=== PATIENT | male | born 2000 | race African-American/Black ===

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

== ENCOUNTER → 2020-02-19 | Outpatient (CLI) | payer OTHER | LOC: M LABSMTC 09:37 | PROVIDERS: ATTEND Anesthesiology | DX: Z01.812 Encounter for preprocedural laboratory examination (principal); Z11.59 Encounter for screening for other viral diseases | CPT/HCPCS: C8903; U0002 ==

== ENCOUNTER 2020-02-21 10:58 | Day surgery (SDC) | payer OTHER ==
[~2020-02-21] VITALS: Ht 170.2 cm; Wt 71.7 kg
[~2020-02-21 10:58] MED LIST: LR 1,000 ML IV ONE; ceFAZolin SOD 2 GM in IV 1 EA IV ONE
[2020-02-21] MEDS ORDERED: propofoL 200 MG/20 ML VIAL As Ordered ONE (11:50)
[2020-02-21] MEDS ORDERED: MIDAZOLAM INJ 2MG/2ML VIAL (J2250 PER 1MG) As Ordered ONE (11:52)
[2020-02-21] MEDS ORDERED: LIDOCAINE 2% 100MG/5ML SDV (FOR ANES.) As Ordered ONE (11:52)
[2020-02-21] MEDS ORDERED: fentaNYL 100 MCG/2 ML INJECTION (J3010) As Ordered ONE ×2 (11:53→14:58)
[2020-02-21] MEDS ORDERED: ROPIvacaine 0.5% 30ML INJECTION (J2795 PER 1MG) As Ordered ONE (13:22)
[2020-02-21] MEDS ORDERED: dexameTHASONE 4 MG/ML 1ML VIAL (J1100 PER 1MG) As Ordered ONE (13:25)
[2020-02-21] MEDS ORDERED: ACETAMINOPHEN 1000MG 100ML IV BTL (OFIRMEV) (J0131 PER 10MG) As Ordered ONE (13:26)
[2020-02-21] MEDS ORDERED: ONDANSETRON 4MG/2ML VIAL As Ordered ONE (13:36)
[2020-02-21] MEDS ORDERED: KETOROLAC 60 MG/2 ML VIAL As Ordered ONE (13:36)
[2020-02-21] MEDS ORDERED: METOCLOPRAMIDE INJ 10MG/2ML VIAL (J2765 PER 1) As Ordered ONE (13:36)
[2020-02-21] MEDS ORDERED: KETOROLAC 30 MG/ML 1ML VIAL IV PRN (15:00)
[2020-02-21] MEDS ORDERED: ACETAMINOPHEN TAB 650MG DOSE (2X325MG) PO PRN (15:45)
[2020-02-21] MEDS ORDERED: ONDANSETRON 4MG/2ML VIAL IV PRN ×2 (15:45)
[2020-02-21] MEDS ORDERED: PERCOCET 5MG/325MG TAB PO PRN (15:45)
[2020-02-21] MEDS ORDERED: MORPHINE 2 MG/ML 1ML VIAL (J2270) IV PRN (15:45)
[2020-02-21] MEDS ORDERED: LR 1,000 ML IV SCH ×2 (15:45)
[2020-02-21] MEDS ORDERED: METOCLOPRAMIDE INJ 10MG/2ML VIAL (J2765 PER 1) IV PRN (15:45)
[2020-02-21] MEDS: fentaNYL 100 MCG/2 ML INJECTION (J3010) IV PRN ×2 (15:53→16:04)
[2020-02-21] MEDS: PERCOCET 5MG/325MG TAB PO PRN ×2 (16:05→16:35)
[2020-02-21 17:56] VITALS: BP 117/71
--- NOTE | 2020-02-24 10:22 | RO ---
DATE OF PROCEDURE: 02/21/2020 PREOPERATIVE DIAGNOSES: Left knee anterior cruciate ligament (ACL) tear and posterior horn lateral meniscus tear. POSTOPERATIVE DIAGNOSES: Left knee anterior cruciate ligament (ACL) tear and posterior horn lateral meniscus tear. PLANNED PROCEDURE: Left knee arthroscopic-assisted hamstrings autograft anterior cruciate ligament reconstruction, possible partial lateral meniscectomy versus repair. PROCEDURE PERFORMED: Left knee arthroscopic-assisted hamstrings autograft anterior cruciate ligament reconstruction, partial posterior horn lateral meniscectomy. SURGEON: Farhat Bergman MD DISC RECORDIST: Irma Olson TYPE OF ANESTHETIC: General anesthetic. CADDIE SUPERVISOR: Dr. 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 He presented with buckling symptoms of his knee. Clinical exam and MRI were consistent with ACL tear as well as a posterior horn lateral meniscus tear. We discussed the pros, cons, risks, and benefits of nonsurgical management versus going ahead with operative interventions. I reiterated the risks in preoperative holding, marked the left lower extremity, and proceeded to surgery. OPERATIVE REPORT: Patient was brought to the operating theater. They were placed supine on the operating room table. 2 grams of intravenous (IV) Ancef was administered. General anesthesia was induced. Stress positioner was used on the patient's left side. 30-inch tourniquet was applied to the left thigh, appropriately padded. All bony prominences were appropriately padded. Sequential compression devices (SCDs) on the down leg. Limb was prepped and draped in the usual sterile fashion, allowing over 3 minutes prep solution drying time. Preoperative time-out was performed to confirm the site, the patient, and the surgery. I began by elevating the leg, inflating the tourniquet to 250 mmHg. Made a small 2-inch incision centered over the proximal and medial border of the tibia. Carried dissection down through skin and subcutaneous tissue, achieving meticulous hemostasis. I identified the sartorial fascia. I made a small incision in line with the tendons in the superior aspect of that. I excised any bands of the two hamstrings tendons and used open-ended tendon harvester to release the tendons proximally. I sharply excised them off the proximal anterior medial border of the tibia. I put a wet sponge in the wound. I began to prepare the tendons. I the two tendons. I put them end to end 180 degrees, flipping them over and cutting them both at 24 cm long. I whipstitched the ends together for a length of 2.5 cm with #2 FiberWire. Then attached one end to the TightRope RT button, passed the other end through the ABS button loop system, and then tripled the graft over and tied it again over the ABS button loop. I then used #2 FiberWire at 1 and 2 cm from the respective ends in a locking loop configuration with buried knots. Placed the graft sequentially on tension and then placed the graft on tension at the end as well. The graft was 7.5 cm in length, and the tunnels were both 9.5 mm. Wet sponge was then placed on the graft. I then turned my attention back to the knee. I made standard high anterolateral and anteromedial portals. I performed a full diagnostic arthroscopy. Patellofemoral cartilage as well as cartilage in the medial and lateral femoral compartments were normal. Gutters were entered. No obvious loose bloody. Medial meniscus with stable and solid to probing. ACL was obviously deficient. There was an empty lateral wall sign. I debrided the ACL remnant. There was a small tear near the posterior horn lateral meniscus that had flipped into the notch. The root appeared intact. There did appear to be a ligament of Rosas anterior meniscofemoral ligament that was intact. I used a combination of biters and shaving instruments to remove the meniscus tear area to stable margins. Meniscus was stable and solid to probing afterwards. There was very small undersurface horizontal fraying, but yet again this was stable. I then prepared the back wall as well as the tibial footprint, removing any remaining ACL fibers. I used inside-out retrograde drilling with the FlipCutter system. I drilled a 3 cm long tunnel with 1 cm remaining on the femur as well as a 3.5 cm long tunnel with 1 cm extra remaining on the tibia. I cleaned away any remaining tissue around the tunnel aperture. I took arthroscopy pictures throughout and saved them onto the system. I ensured that the femoral tunnel was posterior and low on the femoral back wall and without blowing out the wall. I made sure the tibial tunnel was in the space of the old footprint as well as in line with anterior horn lateral meniscus. Then passed the graft, flipped the button, and delivered the graft into femoral tunnel for a length of approximately 3 cm. I then passed the tibial- sided sutures after attaching a luggage tag type stitch to the ABS button loop system. I cycled the knee. Graft was tensioned and affixed with the button, and the backup stitches were also tied over the button as well. No impingement in full extension. Graft was stable and solid to ligamentous testing afterwards. Sutures were cut short and removed. Tourniquet was taken down at 90 minutes. Wounds were thoroughly irrigated with normal saline, followed by closure of the subcutaneous tissue with #2-0 Vicryl, skin with #3-0 Monocryl. 20 mL of 0.25% ropivacaine was used at the end of the case. Wound was cleaned with wet and dry dressing, followed by application of Steri-Strips, Adaptic, 4 x 8 gauze, ABD dressing, and overwrapped with sterile 6-inch Jone bandage. Patient was woken up from general anesthetic, transferred off the operating table, and taken to postanesthetic care unit in stable condition. All sponge, needle, instrument counts were correct. Estimated blood loss of 50 mL. PLAN: The patient will be discharged home according to day surgery criteria. Followup in the office in 2 weeks' time. They will be in crutches likely for 1- 2 weeks but can be weightbearing tolerated. The wardrobe assistant, Irma Olson, was instrumental in achieving visualization, passing the graft, and completing the case, as well as with positioning. DARRIAN
== END 2020-02-21 19:00 | disposition home or self-care (01) ==
LOC: M SDC 10:58
PROVIDERS: ATTEND Orthopaedic Surgery Sports Medicine
DX: S83.512A Sprain of anterior cruciate ligament of left knee, initial encounter (principal); S83.282A Other tear of lateral meniscus, current injury, left knee, initial encounter; X58.XXXA Exposure to other specified factors, initial encounter; Y92.89 Other specified places as the place of occurrence of the external cause; Y93.45 Activity, cheerleading; Y99.9 Unspecified external cause status
CPT/HCPCS: 29881; 29888; C1713; J0131; J0690; J1100; J1885; J2250; J2405; J2765; J2795; J3010

== ENCOUNTER 2022-07-25 09:21 | Inpatient (IN) | payer OTHER ==
[2022-07-25 09:58] LABS: HEMATOCRIT 38.7 % (42.0-52.0); HEMOGLOBIN 12.9 g/dl (13.5-17.5); MEAN CORPUSCULAR HEMOGLOBIN 26.2 pg (27.0-33.0); MEAN CORPUSCULAR HGB CONC 33.3 g/dl (32.0-36.5); MEAN CORPUSCULAR VOLUME 78.7 fl (80.0-96.0); PLATELET COUNT, AUTOMATED 303 10^3/uL (150-450); RED BLOOD COUNT 4.92 10^6/uL (4.30-6.10); WHITE BLOOD COUNT 9.4 10^3/uL (4.0-10.0)
[2022-07-25 10:30] LABS: AMPHETAMINES LEVEL URINE NEGATIVE (NEGATIVE); BARBITURATES URINE NEGATIVE (NEGATIVE); BENZODIAZEPINES URINE NEGATIVE (NEGATIVE); CANNABINOIDS URINE POSITIVE (NEGATIVE); COCAINE METABOLITE URINE POSITIVE (NEGATIVE); METHADONE URINE NEGATIVE (NEGATIVE); OPIATES URINE NEGATIVE (NEGATIVE); PHENCYCLIDINE URINE NEGATIVE (NEGATIVE)
[2022-07-25 10:33] LABS: RSV AMPLIFICATION NEGATIVE (NEGATIVE)
[2022-07-25 10:41] LABS: ACETAMINOPHEN LEVEL < 2.0 UG/ML (10.0-30.0); ALBUMIN 4.8 GM/DL (3.2-5.2); ALT/SGPT 17 U/L (12-78); BILIRUBIN,DIRECT 0.2 MG/DL (0.0-0.2); BILIRUBIN,TOTAL 0.7 MG/DL (0.2-1.0); BLOOD UREA NITROGEN 12 MG/DL (7-18); CALCIUM LEVEL 9.2 MG/DL (8.5-10.1); CARBON DIOXIDE LEVEL 24 MEQ/L (21-32); CHLORIDE LEVEL 109 MEQ/L (98-107); CREATININE FOR GFR 1.51 MG/DL (0.70-1.30); ETHYL ALCOHOL (ETHANOL) 0.084 % (0.000-0.010); GLOMERULAR FILTRATION RATE > 60.0 (>60); GLUCOSE, FASTING 102 MG/DL (70-100); POTASSIUM SERUM 3.8 MEQ/L (3.5-5.1); SALICYLATE LEVEL < 1.7 MG/DL (5.0-30.0); SODIUM LEVEL 140 MEQ/L (136-145); TOTAL PROTEIN 8.5 GM/DL (6.4-8.2)
[2022-07-25] MEDS ORDERED: HOME MED LIST COMPLETE! XX SCH (17:35)
[2022-07-25] MEDS ORDERED: MAALOX 30 ML SUSP *UDC PO PRN (18:15)
[2022-07-25] MEDS ORDERED: MOM 30ML SUSPENSION UDC PO PRN (18:15)
[2022-07-25] MEDS ORDERED: ACETAMINOPHEN TAB 650MG DOSE (2X325MG) PO PRN (18:15)
[2022-07-25 21:09] VITALS: BP 111/71
[2022-07-25] MEDS: traZODone 50 MG TAB PO PRN (23:46)
[2022-07-26 06:20] VITALS: BP 129/74
[2022-07-26 18:37] VITALS: BP 134/81
[2022-07-26] MEDS: traZODone 50 MG TAB PO PRN (22:57)
[2022-07-27 05:40] VITALS: BP 138/77
== END 2022-07-27 11:03 | disposition home or self-care (01) | DRG 755 ==
LOC: M ED 09:21 → M ED INP 18:14 → M PSY 21:07
PROVIDERS: ADMIT Psychiatry & Neurology Psychiatry; ATTEND Psychiatry & Neurology Psychiatry
DX: F43.20 Adjustment disorder, unspecified (principal); R45.851 Suicidal ideations; Z63.5 Disruption of family by separation and divorce; F10.94 Alcohol use, unspecified with alcohol-induced mood disorder; Z20.822 Contact with and (suspected) exposure to COVID-19

== ENCOUNTER 2023-12-14 14:50 | Emergency (ER) | payer MEDICAID, OTHER ==
[~2023-12-14] VITALS: Ht 175.3 cm; Wt 72.7 kg
[2023-12-14] MEDS: ASPIRIN 81MG CHEW TABLET PO ONE (17:52)
[2023-12-14 18:00] LABS: BASO # 0.1 10^3/uL (0.0-0.2); EOS # 0.1 10^3/uL (0.0-0.5); EOS % 1.3 % (0.0-3.0); HEMATOCRIT 39.9 % (42.0-52.0); HEMOGLOBIN 12.9 g/dl (13.5-17.5); LYMPH # 2.1 10^3/uL (1.5-5.0); LYMPH % 30.5 % (24.0-44.0); MEAN CORPUSCULAR HEMOGLOBIN 26.1 pg (27.0-33.0); MEAN CORPUSCULAR HGB CONC 32.3 g/dl (32.0-36.5); MEAN CORPUSCULAR VOLUME 80.6 fl (80.0-96.0); MONO # 0.5 10^3/uL (0.0-0.8); MONO % 7.6 % (2.0-8.0); NEUTROPHILS # 4.1 10^3/uL (1.5-8.5); NEUTROPHILS % 59.5 % (36.0-66.0); PLATELET COUNT, AUTOMATED 299 10^3/uL (150-450); RED BLOOD COUNT 4.95 10^6/uL (4.30-6.10)
[2023-12-14 18:23] LABS: BLOOD UREA NITROGEN 8 MG/DL (9-23); CALCIUM LEVEL 8.6 MG/DL (8.5-10.1); CARBON DIOXIDE LEVEL 26 MMOL/L (20-31); CHLORIDE LEVEL 107 MMOL/L (98-107); CREATININE FOR GFR 0.98 MG/DL (0.70-1.30); GLOMERULAR FILTRATION RATE > 60.0 (>60); GLUCOSE, FASTING 94 MG/DL (60-100); POTASSIUM SERUM 4.2 MMOL/L (3.5-5.1); SODIUM LEVEL 139 MMOL/L (136-145)
[2023-12-14 18:30] VITALS: BP 118/79
[2023-12-14 18:45] VITALS: TEMP 98.9; O2SAT 99
== END 2023-12-14 18:57 | disposition home or self-care (01) ==
LOC: M ED 14:50
DX: R07.89 Other chest pain (principal); F14.10 Cocaine abuse, uncomplicated; F17.200 Nicotine dependence, unspecified, uncomplicated

== ENCOUNTER 2024-03-12 02:41 | Emergency (ER) | payer OTHER ==
[~2024-03-12] VITALS: Ht 172.7 cm; Wt 77.1 kg
[2024-03-12] MEDS: NS 1,000 ML IV ONE (03:05)
[2024-03-12 03:07] LABS: BASO # 0.1 10^3/uL (0.0-0.2); BASO % 0.5 % (0.0-1.0); EOS # 0.1 10^3/uL (0.0-0.5); HEMATOCRIT 40.5 % (42.0-52.0); HEMOGLOBIN 13.4 g/dl (13.5-17.5); LYMPH # 3.6 10^3/uL (1.5-5.0); LYMPH % 30.7 % (24.0-44.0); MEAN CORPUSCULAR HEMOGLOBIN 26.4 pg (27.0-33.0); MEAN CORPUSCULAR HGB CONC 33.1 g/dl (32.0-36.5); MEAN CORPUSCULAR VOLUME 79.9 fl (80.0-96.0); MONO # 0.9 10^3/uL (0.0-0.8); MONO % 7.5 % (2.0-8.0); NEUTROPHILS % 59.9 % (36.0-66.0); PLATELET COUNT, AUTOMATED 343 10^3/uL (150-450); RED BLOOD COUNT 5.07 10^6/uL (4.30-6.10); WHITE BLOOD COUNT 11.7 10^3/uL (4.0-10.0)
[2024-03-12 03:31] LABS: BLOOD UREA NITROGEN 22 MG/DL (9-23); CALCIUM LEVEL 9.5 MG/DL (8.5-10.1); CARBON DIOXIDE LEVEL 28 MMOL/L (20-31); CHLORIDE LEVEL 105 MMOL/L (98-107); CREATININE FOR GFR 1.14 MG/DL (0.70-1.30); GLOMERULAR FILTRATION RATE > 60.0 (>60); GLUCOSE, FASTING 148 MG/DL (60-100); POTASSIUM SERUM 3.7 MMOL/L (3.5-5.1); SODIUM LEVEL 142 MMOL/L (136-145)
[2024-03-12 03:49] LABS: CK-MB VALUE MASS 2.3 NG/ML (<3.6)
[2024-03-12 03:52] LABS: CPK CREATINE PHOSPHOKINASE 290 U/L (46-171); MB/CK RELATIVE INDEX 0.79 (< OR =4)
[2024-03-12 04:53] LABS: CK-MB VALUE MASS 2.1 NG/ML (<3.6)
[2024-03-12 04:54] LABS: CPK CREATINE PHOSPHOKINASE 241 U/L (46-171); MB/CK RELATIVE INDEX 0.87 (< OR =4)
[2024-03-12 05:00] VITALS: BP 113/58; TEMP 97.9; O2SAT 96
== END 2024-03-12 05:20 | disposition home or self-care (01) ==
LOC: M ED 02:41 → EDBD 02:41 → M ED 05:20
DX: R07.9 Chest pain, unspecified (principal); R00.2 Palpitations; I45.10 Unspecified right bundle-branch block; I25.2 Old myocardial infarction; F17.200 Nicotine dependence, unspecified, uncomplicated; F10.10 Alcohol abuse, uncomplicated; F12.10 Cannabis abuse, uncomplicated; F19.10 Other psychoactive substance abuse, uncomplicated

== ENCOUNTER 2025-01-09 15:06 | Inpatient (IN) | payer OTHER ==
[~2025-01-09] VITALS: Ht 205.7 cm; Wt 67.4 kg
[2025-01-09 15:50] LABS: HEMOGLOBIN 12.9 g/dl (13.5-17.5); MEAN CORPUSCULAR HEMOGLOBIN 26.3 pg (27.0-33.0); MEAN CORPUSCULAR HGB CONC 33.1 g/dl (32.0-36.5); MEAN CORPUSCULAR VOLUME 79.6 fl (80.0-96.0); PLATELET COUNT, AUTOMATED 303 10^3/uL (150-450); WHITE BLOOD COUNT 6.6 10^3/uL (4.0-10.0)
[2025-01-09 16:17] LABS: AMPHETAMINES LEVEL URINE NEGATIVE (NEGATIVE); BARBITURATES URINE NEGATIVE (NEGATIVE); BENZODIAZEPINES URINE NEGATIVE (NEGATIVE); COCAINE METABOLITE URINE NEGATIVE (NEGATIVE); METHADONE URINE NEGATIVE (NEGATIVE); OPIATES URINE NEGATIVE (NEGATIVE); PHENCYCLIDINE URINE NEGATIVE (NEGATIVE)
[2025-01-09 16:18] LABS: ETHYL ALCOHOL (ETHANOL) < 0.003 % (0.000-0.010)
[2025-01-09 16:19] LABS: CANNABINOIDS URINE POSITIVE (NEGATIVE)
[2025-01-09 16:20] LABS: SALICYLATE LEVEL < 3.0 MG/DL (<30)
[2025-01-09 16:21] LABS: ALBUMIN 4.8 G/DL (3.2-5.2); ALKALINE PHOSPHATASE 65 U/L (40-129); ALT/SGPT 15 U/L (7.0-40); AST/SGOT 20 U/L (<34); BILIRUBIN,DIRECT 0.2 MG/DL (<0.4); BILIRUBIN,TOTAL 0.6 MG/DL (0.3-1.2); BLOOD UREA NITROGEN 14 MG/DL (9-23); CALCIUM LEVEL 9.2 MG/DL (8.5-10.1); CARBON DIOXIDE LEVEL 26 MMOL/L (20-31); CHLORIDE LEVEL 108 MMOL/L (98-107); CREATININE FOR GFR 0.94 MG/DL (0.70-1.30); GLOMERULAR FILTRATION RATE > 60.0 (>60); GLUCOSE, FASTING 96 MG/DL (60-100); POTASSIUM SERUM 4.2 MMOL/L (3.5-5.1); SODIUM LEVEL 141 MMOL/L (136-145); TOTAL PROTEIN 7.4 G/DL (5.7-8.2)
[2025-01-09 16:23] LABS: THYROID STIMULATING HORMONE 0.536 uIU/ML (0.55-4.78)
[2025-01-09] MEDS ORDERED: HOME MED LIST COMPLETE! XX SCH (18:30)
[2025-01-09] MEDS ORDERED: diphenhydrAMINE 25MG CAP PO PRN (18:45)
[2025-01-09] MEDS ORDERED: MOM 30ML SUSPENSION UDC PO PRN (18:45)
[2025-01-09] MEDS ORDERED: MAALOX 30 ML SUSP *UDC PO PRN (18:45)
[2025-01-09] MEDS ORDERED: ACETAMINOPHEN 325 MG TAB PO PRN (18:45)
[2025-01-09] MEDS ORDERED: traZODone 50 MG TAB PO PRN (18:45)
[2025-01-09] MEDS ORDERED: IBUPROFEN 400MG TAB PO PRN (18:45)
[2025-01-10] MEDS ORDERED: traZODone 50 MG TAB PO PRN (10:35)
[2025-01-10] MEDS ORDERED: IBUPROFEN 400MG TAB PO PRN (10:35)
[2025-01-10] MEDS ORDERED: MOM 30ML SUSPENSION UDC PO PRN (10:35)
[2025-01-10] MEDS ORDERED: ACETAMINOPHEN 325 MG TAB PO PRN (10:35)
[2025-01-10] MEDS ORDERED: diphenhydrAMINE 25MG CAP PO PRN (10:35)
[2025-01-10] MEDS ORDERED: MAALOX 30 ML SUSP *UDC PO PRN (10:35)
[2025-01-10 12:58] VITALS: BP 126/74; TEMP 97.6; O2SAT 99
[2025-01-10] MEDS: NICOTINE POLACRILEX 2 MG GUM PO PRN (16:34)
[2025-01-11 06:48] VITALS: BP 157/87; TEMP 97.7; O2SAT 99
[2025-01-12 06:23] VITALS: BP 129/73; TEMP 97; O2SAT 100
== END 2025-01-12 13:33 | disposition home or self-care (01) | DRG 753 ==
LOC: M ED 17:01 → UNDOADMIN 18:44 → M ED INP 18:44 → M PSY 01-10 13:08
PROVIDERS: ADMIT Psychiatry & Neurology Neurology; ATTEND Psychiatry & Neurology Psychiatry
DX: F39 Unspecified mood [affective] disorder (principal); F17.290 Nicotine dependence, other tobacco product, uncomplicated; Z65.0 Conviction in civil and criminal proceedings without imprisonment; Z63.0 Problems in relationship with spouse or partner